=== PATIENT | male | born 2000 | race African-American/Black ===

== ENCOUNTER 2021-08-20 06:55 | Emergency (ER) | payer SELFPAY ==
--- OUTSIDE RECORDS SUMMARY | 2021-08-20 06:57 | XMS REPORT | Continuity of Care Document ---
:2000 Author Organization [facility] t Address [address] [place] [address] Care Team Providers Name Role Phone JARAD FULTON NP Attending Clinician Unavailable Problems Condition Condition Condition Status Onset Resolution Last Treating Co mments Source Name Details Category Date Date Treatment Clinician Date Right Right Problem Active Univers otitis otitis [id number] ity of externa externa [place] [facility] Allergies, Adverse Reactions, Alerts This patient has no known allergies or adverse reactions. Family History Family Member Diagnosis Comments Start Date Stop Date Source Mother Family history of [facility] [place] diabetes mellitus Physici ans Mother Family history of [facility] [place] hypertension Physicians Mother Family history of [facility] [place] malignant neoplasm Physic ians Grandfather Family history of [facility] [place] diabetes mellitus Physici ans Grandfather Family history of [facility] [place] malignant neoplasm Physic ians Social History Smoking Status Start Date Stop Date Source Light tobacco smoker [facility] Physicians Medications Ordered Filled Start Stop Current Ordering Indication Dosage Frequency Signature Comments Components Source Medication Medication Date Date Medication? Clinician (SIG) Name Name Ciprofloxac Ciprofloxac 2017- Yes JARAD FULTON 2 Q12H INSTILL 2 Univers in HCl - in HCl - 8-09 N.P. DROP Every i ty of 0.2 % Otic 0.2 % Otic 00:00: twelve [place] Solution Solution 00 hours Physic i ans Vital Signs Vital Name Observation Time Observation Value Comments Source BP Systolic 2017-12-26 113 mm[Hg] Location: [facility] 10:30:00 Position: [place] [facility]ician s Sitting BP Diastolic 2017-12-26 68 mm[Hg] Location: [facility] 10:30:00 Position: [place] [facility]ician s Sitting Heart Rate 2017-12-26 54 /min Location: [facility] 10:30:00 Brachial [place] [facility] Artery; BP Systolic 2017-12-26 112 mm[Hg] Location: [facility] 10:25:00 Position: [place] [facility]ician s Sitting BP Diastolic 2017-12-26 61 mm[Hg] Location: [facility]; [facility] 10:25:00 Position: [place] [facility] s Sitting Heart Rate 2017-12-26 55 /min Location: R [facility] 10:25:00 Brachial [place] [facility] s Artery; Height 2017-12-26 69.49 [in_us] [facility] 10:25:00 [place] [facility] Weight 2017-12-26 174.25 [lb_av] [facility] 10:25:00 [place] [facility] Body Mass Index 2017-12-26 25.37 kg/m2 University o f Calculated 10:25:00 [place] [facility] Temperature 2017-12-26 97.7 [degF] Method: Oral [facility] 10:25:00 [place] [facility] Respiration Rate 2017-12-26 18 /min Quality: Normal Universi ty of 10:25:00 [place] [facility] O2 SAT 2017-12-26 99 % Source: RA [facility] 10:25:00 [place] [facility] Procedures This patient has no known procedures. Encounters Start End Encounter Admission Attending Care Care Encounter Source Date/Time Date/Time Type Type Clinicians Facility Department ID 2017-12-26 2017-12-26 Appointmen JARAD FULTON, [facility] 4 [id number] [facility] 09:45:00 09:45:00 t; FORTINO FULTON Health and it y cornelia ABRAHAM NP Wellness [facility] ans Results This patient has no known results.
[2021-08-20] MEDS ORDERED: DIPHENHYDRAMINE 25 MG TAB/CAP ONE (07:16)
[2021-08-20] MEDS ORDERED: predniSONE 20 MG TAB ONE (07:16)
--- NOTE | 2021-08-20 07:45 | EDPHYS ---
Physician Documentation [facility] Name: Raphael Josue Age: 21 yrs Sex: Male : 2000 Arrival Date: 08/20/2021 Time: 06:58 Bed 12 Private MD: ED Physician Jhonny Jorgensen HPI: 08/20 07:41 This 21 yrs old Black Male presents to ER via Ambulatory with complaints of Numbness Of rn Lips. 07:41 Pt reports 2 days of numbness to lips, feels poking sensation, no blisters, no trauma, rn no itching, no intraoral complaints. No medication. No hx of allergic reactions. No sting or bite.. Onset: The symptoms/episode began/occurred yesterday. Severity of symptoms: At their worst the symptoms were very mild in the emergency department the symptoms are unchanged. The patient has not experienced similar symptoms in the past. The patient has not recently seen a physician. Historical: - Allergies: 07:09 No Known Allergies; jl7 - Home Meds: 07:09 None [Active]; jl7 - PMHx: 07:09 None; jl7 - PSHx: 07:09 None; jl7 - Immunization history:: Adult Immunizations unknown. - Social history:: Smoking status: Patient reports the use of cigarette tobacco products, denies chronic smoking, but will smoke occasionally, Reported history of juuling and/or vaping. - Family history:: not pertinent. - Hospitalizations: : No recent hospitalization is reported. ROS: 07:41 Constitutional: Negative for fever, chills, and weight loss, Eyes: Negative for injury, rn pain, redness, and discharge, ENT: Negative for injury, pain, and discharge, Neck: Negative for injury, pain, and swelling, Respiratory: Negative for shortness of breath, cough, wheezing, and pleuritic chest pain, Skin: Negative for injury, rash, and discoloration, Neuro: Negative for headache, weakness, and seizure. Exam: 07:41 Constitutional: This is a well developed, well nourished patient who is awake, alert, rn and in no acute distress. Head/Face: Normocephalic, atraumatic. Eyes: Pupils equal round and reactive to light, extra-ocular motions intact. Lids and lashes normal. Conjunctiva and sclera are non-icteric and not injected. Cornea within normal limits. Periorbital areas with no swelling, redness, or edema. ENT: Nares patent. No nasal discharge, no septal abnormalities noted. Oropharynx with no redness, swelling, or masses, exudates, or evidence of obstruction, uvula midline. Mucous membranes moist. No induration or lesions of lips, no significant swelling noted. No tenderness. Vital Signs: 07:04 BP 131 / 86; Pulse 71; Resp 15; Pulse Ox 100% ; jl7 07:10 Temp 98.1; Pain 4/10; jl7 MDM: 07:09 Patient medically screened. rn 07:41 Differential Diagnosis anxiety, early viral infection, early allergic reaction. Data rn reviewed: vital signs, nurses notes, and as a result, I will discharge patient. Counseling: I had a detailed discussion with the patient and/or guardian regarding: the historical points, exam findings, and any diagnostic results supporting the discharge/admit diagnosis, the need for outpatient follow up, to return to the emergency department if symptoms worsen or persist or if there are any questions or concerns that arise at home. ED course: No obvious etiology of numbness of lips, given benadryl and steroids in case possible allergic reaction. . Administered Medications: 07:13 Drug: Benadryl (diphenhydrAMINE) 50 mg Route: PO; jl7 07:48 Follow up: Response: No adverse reaction; Marked relief of symptoms jl7 07:13 Drug: predniSONE 60 mg Route: PO; jl7 07:48 Follow up: Response: No adverse reaction; Marked relief of symptoms [facility] Disposition Summary: 08/20/21 07:45 Discharge Ordered Location: Home rn Problem: new rn Symptoms: have improved rn Condition: Stable rn Diagnosis - Paresthesia of skin rn Followup: rn - With: Private Physician - When: As needed - Reason: Recheck today's complaints, Re-evaluation by your physician Discharge Instructions: - Discharge Summary Sheet rn - Paresthesia rn Forms: - Medication Reconciliation Form rn - Thank You Letter rn - Antibiotic coverage specialist rn - Prescription Opioid Use rn Signatures: Jhonny Jorgensen MD MD rn Leal, Jahala, RN RN jl7 Corrections: (The following items were deleted from the chart) 07:09 07:04 Social history: Smoking status: jamil negron
--- NOTE | 2021-08-20 07:45 | ER ---
Nurse's Notes [facility] Name: Raphael oJsue Age: 21 yrs Sex: Male : 2000 Arrival Date: 08/20/2021 Time: 06:58 Bed 12 Private MD: Diagnosis: Paresthesia of skin Presentation: 08/20 07:04 Chief complaint: Patient states: Swelling to top lip x 2 days. "It has like a little jl7 stingy thing all over my lips. I've never had this before so I wanted to get it checked out." Denies trauma, denies fever. Coronavirus screen: At this time, the client does not indicate any symptoms associated with coronavirus-19. Ebola Screen: No symptoms or risks identified at this time. Initial Sepsis Screen: Does the patient meet any 2 criteria?. Risk Assessment: Do you want to hurt yourself or someone else? Patient reports no desire to harm self or others. Onset of symptoms was August 18, 2021. Care prior to arrival: None. 07:04 Method Of Arrival: Ambulatory [facility] 07:04 Acuity: ELY 4 jl7 07:09 Initial Sepsis Screen: Does the patient meet any 2 criteria? No. Patient's initial jl7 sepsis screen is negative. Does the patient have a suspected source of infection? No. Patient's initial sepsis screen is negative. Triage Assessment: 07:04 General: Appears in no apparent distress. uncomfortable, Behavior is calm, cooperative, jl7 appropriate for age. Pain: Complains of pain in upper lip and lower lip Pain currently is 4 out of 10 on a pain scale. Neuro: Level of Consciousness is awake, alert, obeys commands, Oriented to person, place, time, situation. Cardiovascular: Patient's skin is warm and dry. Respiratory: Airway is patent Respiratory effort is even, unlabored, Respiratory pattern is regular, symmetrical, Denies shortness of breath. Derm: Skin is pink, warm \\T\\ dry. Historical: - Allergies: 07:09 No Known Allergies; jl7 - Home Meds: 07:09 None [Active]; jl7 - PMHx: 07:09 None; jl7 - PSHx: 07:09 None; jl7 - Immunization history:: Adult Immunizations unknown. - Social history:: Smoking status: Patient reports the use of cigarette tobacco products, denies chronic smoking, but will smoke occasionally, Reported history of juuling and/or vaping. - Family history:: not pertinent. - Hospitalizations: : No recent hospitalization is reported. Screenin:05 Abuse screen: Denies threats or abuse. Denies injuries from another. Nutritional jl7 screening: No deficits noted. Tuberculosis screening: No symptoms or risk factors identified. Fall Risk None identified. Assessment: 07:05 Reassessment: Dr. Jorgensen in triage assessing pt. jl7 07:29 General: See triage. jl7 07:48 Reassessment: Patient appears in no apparent distress at this time. Patient states jl7 symptoms have improved. Vital Signs: 07:04 BP 131 / 86; Pulse 71; Resp 15; Pulse Ox 100% ; jl7 07:10 Temp 98.1; Pain 4/10; jl7 ED Course: 06:58 Patient arrived in ED. jj6 07:04 Arm band placed on right wrist. jl7 07:05 Patient has correct armband on for positive identification. Bed in low position. Call jl7 light in reach. Side rails up X 1. Pulse ox on. NIBP on. 07:07 Triage completed. jl7 07:09 Jhonny Jorgensen MD is Attending Physician. rn 07:10 Chaim Siegel RN is Primary Nurse. jl7 07:51 No provider procedures requiring assistance completed. Patient did not have IV access jl7 during this emergency room visit. Administered Medications: 07:13 Drug: Benadryl (diphenhydrAMINE) 50 mg Route: PO; jl7 07:48 Follow up: Response: No adverse reaction; Marked relief of symptoms jl7 07:13 Drug: predniSONE 60 mg Route: PO; jl7 07:48 Follow up: Response: No adverse reaction; Marked relief of symptoms jl7 Outcome: 07:45 Discharge ordered by . rn 07:51 Discharged to home ambulatory. jl7 07:51 Condition: stable 07:51 Discharge instructions given to patient, Instructed on discharge instructions, follow up and referral plans. Demonstrated understanding of instructions, follow-up care. 07:52 Patient left the ED. jl7 Signatures: Jhonny Jorgensen MD MD rn Leal, Jahala, RN RN jl7 Jennifer Hall j Corrections: (The following items were deleted from the chart) 07:09 07:04 Social history: Smoking status: jl7 jl7
[2021-08-20 07:58] VITALS: BP 131/86; O2SAT 100
[2021-08-20 07:59] VITALS: TEMP 98.1
== END 2021-08-20 07:52 | disposition home or self-care (01) ==
LOC: ER 06:55
DX: R20.2 Paresthesia of skin (principal); F17.210 Nicotine dependence, cigarettes, uncomplicated
CPT/HCPCS: 99283; J7512

== ENCOUNTER 2022-01-04 00:06 | Emergency (ER) | payer OTHER ==
--- OUTSIDE RECORDS SUMMARY | 2022-01-04 00:09 | XMS REPORT | Continuity of Care Document ---
:2000 Author Organization [facility] t Address [address] [place] [address] Care Team Providers Name Role Phone PCP, PATIENT DOES NOT HAVE A Primary Care Physician Unavaila COLUMBA Peters Attending Clinician Unavailable Columba Hernandez DO Attending Clinician JARAD FULTON NP Attending Clinician Unavailable Payers Payer Name Policy Type Policy Number Effective Date Expiration Date S ourelijah [employer] [id number] 2021 00:00:00 Problems Condition Condition Condition Status Onset Resolution Last Treating Co mments Source Name Details Category Date Date Treatment Clinician Date Right Right Problem Active [place] otitis otitis [id number] Physic i externa externa ans No known No known Disease Unive rs active active ity of problems problems [facility] Allergies, Adverse Reactions, Alerts Allergy Allergy Status Severity Reaction(s) Onset Inactive Treating Comm ents Source Name Type Date Date Clinician NO KNOWN Drug Active Univers ALLERGIE Class ity of S [facility] Family History Family Member Diagnosis Comments Start Date Stop Date Source Mother Family history of diabetes [facility] mellitus Mother Family history of [facility] hypertension Mother Family history of malignant [facility] neoplasm Grandfather Family history of diabetes [facility] mellitus Grandfather Family history of malignant [facility] neoplasm Social History Social Habit Start Date Stop Date Quantity Comments Source Exposure to 2021-11-26 2021-12-06 Not sure [facility] SARS-CoV-2 (event) 00:00:00 15:32:00 Medica l Branch Sex Assigned At [birth year] [facility] 00:00:00 00:00:00 Medical Branch Smoking Status Start Date Stop Date Source Light tobacco smoker [facility] Tobacco smoking consumption [facility] unknown Branch Medications Ordered Filled Start Stop Current Ordering Indication Dosage Frequency Signature Comments Components Source Medication Medication Date Date Medication? Clinician (SIG) Name Name NaCl 0.9% 2021- No 1000mL at 999 Uni vers (NS) bolus 12-06 07-20 mL/hr, ity of infusion 21:30: 22:22 1,000 mL, Ari as 1,000 mL 00 :00 IV Medical Infusion, Branch ONCE, 1 dose, On Sat12/06/21 at 1630, ADELINE No known No No known Unive rs medications 12-06 medication it y of 15:30: s [address] Ciprofloxac Ciprofloxac Yes JARAD FULTON 2 Q12H INSTILL 2 [facility] in HCl - in HCl - 809 N.P. DROP Every P hysici 0.2 % Otic 0.2 % Otic 00:00: twelve ans Solution Solution 00 hours Vital Signs Vital Name Observation Time Observation Value Comments Source Systolic blood 2021-12-06 136 mm[Hg] University of pressure 22:00:00 [facility] Diastolic blood 2021-12-06 100 mm[Hg] [facility] o f pressure 22:00:00 [facility] Heart rate 2021-12-06 65 /min [facility] 22:00:00 [facility] Respiratory rate 2021-12-06 11 /min [facility] 22:00:00 [facility] Oxygen saturation 2021-12-06 100 /min [facility] in Arterial blood 22:00:00 [facility] by Pulse oximetry Branch Body temperature 2021-12-06 36.39 Patrizia [facility] 20:33:00 [facility] Body weight 2021-12-06 83.915 kg [facility] 20:33:00 [facility] BP Systolic 2017-12-26 113 mm[Hg] Location: [facility] [place] [facility] 10:30:00 Position: Sitting BP Diastolic 2017-12-26 68 mm[Hg] Location: [facility] 10:30:00 Position: Sitting Heart Rate 2017-12-26 54 /min Location: [facility] [place] [facility] 10:30:00 Brachial Artery; BP Systolic 2017-12-26 112 mm[Hg] Location: [facility]; [place] [facility] 10:25:00 Position: Sitting BP Diastolic 2017-12-26 61 mm[Hg] Location: [facility]; [place] [facility] 10:25:00 Position: Sitting Heart Rate 2017-12-26 55 /min Location: [facility] 10:25:00 Brachial Artery; Height 2017-12-26 69.49 [in_us] [facility] 10:25:00 Weight 2017-12-26 174.25 [lb_av] [facility] 10:25:00 Body Mass Index 2017-12-26 25.37 kg/m2 [facility] Calculated 10:25:00 Temperature 2017-12-26 97.7 [degF] Method: Oral [facility] 10:25:00 Respiration Rate 2017-12-26 18 /min Quality: Normal [place] [facility] 10:25:00 O2 SAT 2017-12-26 99 % Source: RA [facility] 10:25:00 Procedures Procedure Date / Time Performed Performing Clinician Sourc e CREATINE KINASE 2021-12-06 20:40:00 Columba Hernandez [facility] COMP. METABOLIC PANEL 2021-12-06 20:40:00 Columba Hernandez Uni versity [facility] ([id number]) [facility] CBC WITH DIFF 2021-12-06 20:40:00 Columba Hernandez [facility] Encounters Start End Encounter Admission Attending Care Care Encounter Source Date/Time Date/Time Type Type Clinicians Facility Department ID 2021-12-06 2021-12-06 [facility] [id number] Univers 15:37:00 18:22:00 COLUMBA gates [facility] 2021-12-06 2021-12-06 [facility] [id number] Univers 15:37:00 18:22:00 Columba Albright [place] [id number] ity [facility] [id number] [facility] [id number] [facility] 084 Branch 2017-12-26 2017-12-26 Appointmen JARAD FULTON, [facility] 4 [id number] [place] 09:45:00 09:45:00 t; FORTINO FULTON Health and Ph ici FORTINO ABRAHAM Wellness [facility] Results This patient has no known results.
--- NOTE | 2022-01-04 00:22 | EDPHYS ---
Physician Documentation [facility] Name: Raphael Josue Age: 21 yrs Sex: Male : 2000 Arrival Date: 01/04/2022 Time: 00:11 Bed Waiting Private MD: ED Physician Jhonny Jorgensen HPI: 01/04 00:18 This 21 yrs old Black Male presents to ER via Unassigned with complaints of Toothache. rn 00:18 The patient presents with pain. The problem is located in the right lower teeth/gums. rn Onset: The symptoms/episode began/occurred 5 month(s) ago. Duration: The symptoms are continuous. Modifying factors: The symptoms are alleviated by nothing, the symptoms are aggravated by chewing, talking. Associated signs and symptoms: Pertinent negatives: fever, inability to eat, swelling. Severity of symptoms: At their worst the symptoms were moderate, in the emergency department the symptoms are unchanged. The patient has experienced a previous episode. The patient has not recently seen a physician. 00:18 Pt reports pain right lower teeth for 5 months, worse last few days, no trauma, no rn fever. Has dentist appt tomorrow. Taking tylenol and motrin without relief.. Historical: - Allergies: 00:23 No Known Allergies; vc1 - Home Meds: 00:23 None [Active]; vc1 - PMHx: 00:23 None; vc1 - Immunization history:: Adult Immunizations up to date, Client reports having NOT received the Covid vaccine. - Social history:: Smoking status: Reported history of juuling and/or vaping. - Family history:: not pertinent. - Hospitalizations: : No recent hospitalization is reported. ROS: 00:18 Constitutional: Negative for fever, chills, and weight loss, ENT: + dental pain rn Exam: 00:18 Constitutional: This is a well developed, well nourished patient who is awake, alert, rn and in no acute distress. Head/Face: Normocephalic, atraumatic. ENT: Poor dentition without focal introral swelling or abscess. Neck: Trachea midline, no masses palpated, and no cervical lymphadenopathy. Vital Signs: 00:22 Weight 77.11 kg; Height 6 ft. 0 in. (182.88 cm); Pain 10/10; vc1 00:25 BP 122 / 91; Pulse 59; Resp 17; Temp 97.9; Pulse Ox 100% ; vc1 00:22 Body Mass Index 23.06 (77.11 kg, 182.88 cm) vc1 MDM: 00:11 Patient medically screened. rn 00:20 Differential diagnosis: dental caries, gingivitis, dental abscess. Data reviewed: vital rn signs, nurses notes, and as a result, I will discharge patient. Counseling: I had a detailed discussion with the patient and/or guardian regarding: the historical points, exam findings, and any diagnostic results supporting the discharge/admit diagnosis, the need for outpatient follow up, to return to the emergency department if symptoms worsen or persist or if there are any questions or concerns that arise at home. Special discussion: I discussed with the patient/guardian in detail that at this point there is no indication for admission to the hospital. It is understood, however, that if the symptoms persist or worsen the patient needs to return immediately for re-evaluation. Based on the history and exam findings, there is no indication for further emergent testing or inpatient evaluation. I discussed with the patient/guardian the need to see a dentist for further evaluation of the symptoms. 01/04 00:15 Order name: IV Start; Complete Time: 00:37 kd3 Administered Medications: 00:28 Drug: Decadron - Dexamethasone 10 mg Route: IVP; Site: right forearm; vc1 00:37 Follow up: Response: No adverse reaction; Medication administered at discharge. vc1 00:30 Drug: Ketorolac 30 mg Route: IVP; Site: right forearm; vc1 00:37 Follow up: Response: No adverse reaction; Medication administered at discharge. vc1 00:36 Drug: Clindamycin 300 mg Route: PO; vc1 00:37 Follow up: Response: No adverse reaction; Medication administered at discharge. vc1 Disposition Summary: 01/04/22 00:21 Discharge Ordered Location: Home rn Problem: an ongoing problem rn Symptoms: have improved rn Condition: Stable rn Diagnosis - Dental caries, unspecified rn Followup: rn - With: Private Physician - When: Today - Reason: Recheck today's complaints, Re-evaluation by your physician Discharge Instructions: - Discharge Summary Sheet rn - Dental Caries, Adult rn - Dental Pain rn Forms: - Medication Reconciliation Form rn - Thank You Letter rn - Antibiotic internal control consultant - Prescription Opioid Use rn Prescriptions: - Clindamycin HCl 300 mg Oral Capsule - take 1 capsule by ORAL route every 6 hours for 10 days; 40 capsule; Refills: 0, rn Product Selection Permitted - Medrol (Doug) 4 mg Oral Tablets, Dose Pack - take 1 tablet by ORAL route as directed - follow package instructions; 1 rn packet; Refills: 0, Product Selection Permitted Signatures: Jhonny Jorgensen MD MD rn Doucette, Kyli, RN RN kd3 Cynthia Mendez RN RN vc1
[2022-01-04] MEDS ORDERED: dexAMETHasone 10 MG/ML VIAL ONE (00:29)
[2022-01-04] MEDS ORDERED: KETOROLAC 30 MG/ML INJ ONE (00:30)
--- NOTE | 2022-01-04 00:40 | ER ---
Nurse's Notes [facility] Name: Raphael Josue Age: 21 yrs Sex: Male : 2000 Arrival Date: 01/04/2022 Time: 00:11 Bed Waiting Private MD: Diagnosis: Dental caries, unspecified Presentation: 01/04 00:22 Chief complaint: Patient states: "My wisdom tooth is hurting me.". Coronavirus screen: vc1 Vaccine status: Patient reports being unvaccinated. At this time, the client does not indicate any symptoms associated with coronavirus-19. Ebola Screen: No symptoms or risks identified at this time. Initial Sepsis Screen:. Onset of symptoms is unknown. 00:22 Method Of Arrival: Ambulatory vc1 00:22 Acuity: ELY 5 vc1 00:26 Initial Sepsis Screen: Does the patient meet any 2 criteria? No. Patient's initial vc1 sepsis screen is negative. Does the patient have a suspected source of infection? Yes: Other: Tooth. Risk Assessment: Do you want to hurt yourself or someone else? Patient reports no desire to harm self or others. Triage Assessment: 00:23 General: Appears in no apparent distress. uncomfortable, Behavior is calm, cooperative, vc1 appropriate for age. Pain: Complains of pain in lower right third molar Pain does not radiate. Pain currently is 10 out of 10 on a pain scale. Quality of pain is described as throbbing. EENT: Reports pain in lower right third molar. Neuro: No deficits noted. Cardiovascular: No deficits noted. Respiratory: No deficits noted. GI: No signs and/or symptoms were reported involving the gastrointestinal system. : No signs and/or symptoms were reported regarding the genitourinary system. Derm: No deficits noted. Historical: - Allergies: 00:23 No Known Allergies; vc1 - Home Meds: 00:23 None [Active]; vc1 - PMHx: 00:23 None; vc1 - Immunization history:: Adult Immunizations up to date, Client reports having NOT received the Covid vaccine. - Social history:: Smoking status: Reported history of juuling and/or vaping. - Family history:: not pertinent. - Hospitalizations: : No recent hospitalization is reported. Screenin:25 Abuse screen: Denies threats or abuse. Nutritional screening: No deficits noted. vc1 Tuberculosis screening: No symptoms or risk factors identified. Fall Risk None identified. Assessment: 00:36 Reassessment: See triage assessment. vc1 Vital Signs: 00:22 Weight 77.11 kg; Height 6 ft. 0 in. (182.88 cm); Pain 10/10; vc1 00:25 BP 122 / 91; Pulse 59; Resp 17; Temp 97.9; Pulse Ox 100% ; vc1 00:22 Body Mass Index 23.06 (77.11 kg, 182.88 cm) vc1 ED Course: 00:11 Patient arrived in ED. ja2 00:11 Jhonny Jorgensen MD is Attending Physician. rn 00:22 Cynthia Mendez RN is Primary Nurse. vc1 00:23 Triage completed. vc1 00:25 Arm band placed on right wrist. vc1 00:25 No provider procedures requiring assistance completed. vc1 00:26 Patient has correct armband on for positive identification. vc1 00:28 Inserted saline lock: 20 gauge in right forearm, using aseptic technique. vc1 00:36 IV discontinued, intact, bleeding controlled, No redness/swelling at site. Pressure vc1 dressing applied. Administered Medications: 00:28 Drug: Decadron - Dexamethasone 10 mg Route: IVP; Site: right forearm; vc1 00:37 Follow up: Response: No adverse reaction; Medication administered at discharge. vc1 00:30 Drug: Ketorolac 30 mg Route: IVP; Site: right forearm; vc1 00:37 Follow up: Response: No adverse reaction; Medication administered at discharge. vc1 00:36 Drug: Clindamycin 300 mg Route: PO; vc1 00:37 Follow up: Response: No adverse reaction; Medication administered at discharge. vc1 Medication: 00:26 VIS not applicable for this client. vc1 Outcome: 00:21 Discharge ordered by . rn 00:36 Discharged to home ambulatory, with significant other. vc1 00:36 Condition: good 00:36 Condition: good 00:36 Discharge instructions given to patient, Instructed on discharge instructions, follow up and referral plans. medication usage, Demonstrated understanding of instructions, follow-up care, medications, Prescriptions given X 2. 00:39 Patient left the ED. vc1 Signatures: Jhonny Jorgensen MD MD rn Alexander, Jessica ja2 Calcote, Cynthia, RN RN vc1
[2022-01-04 03:26] VITALS: BP 122/91; TEMP 97.9; O2SAT 100
== END 2022-01-04 00:39 | disposition home or self-care (01) ==
LOC: ER 00:06
DX: K02.9 Dental caries, unspecified (principal)
CPT/HCPCS: 96375; 96374; 99283; J1100